=== PATIENT | female | born 1975 | race American Indian/Alaskan Native ===

== ENCOUNTER 2016-11-13 11:32 | Emergency (ER) | payer BC, OTHER ==
[2016-11-13] MEDS ORDERED: methylPREDNISolone Sodium Succinate 125 MG/2 ML SDV IM ONE (11:35)
[2016-11-13] MEDS ORDERED: diphenhydrAMINE 50 MG/ML SDV IM ONE (11:35)
--- NOTE | 2016-11-13 11:54 | EDM.PDOC ---
ED HPI GENERAL MEDICAL PROBLEM - General Chief Complaint: Allergic Reaction Stated Complaint: [id number] THROAT TIGHT HIVES Time Seen by Provider: 11/13/16 11:50 Source of Information: Reports: Patient History Limitations: Reports: No Limitations - History of Present Illness INITIAL COMMENTS - FREE TEXT/NARRATIVE: This 41 yo female patient reports to the ED with hives and tightness in her throat. The patient reports her symptoms started yesterday and have gotten worse today. The patient reports she took Benadryl (25 mg) just prior to coming to the ED. The patient reports she does not know of anything that she is allergic to at this time. The patient reports she did not eat or drink anything new over the past 24 hours. 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 ED EXAM GENERAL NO PERIP PULSE - Physical Exam Exam: See Below Exam Limited By: No Limitations General Appearance: Alert, WD/WN, Anxious, Obese Eye Exam: Bilateral Eye: EOMI, Normal Inspection, PERRL Ears: Normal External Exam, Normal Canal, Hearing Grossly Normal, Normal TMs Nose: Normal Inspection, Normal Mucosa, No Blood Throat/Mouth: Normal Inspection, Normal Lips, Normal Teeth, Normal Gums, Normal Oropharynx, Normal Voice, No Airway Compromise Head: Atraumatic, Normocephalic Neck: Normal Inspection, Supple, Non-Tender, Full Range of Motion Respiratory/Chest: No Respiratory Distress, Lungs Clear, Normal Breath Sounds, No Accessory Muscle Use, Chest Non-Tender Cardiovascular: Normal Peripheral Pulses, Regular Rate, Rhythm, No Edema, No Gallop, No JVD, No Murmur, No Rub GI/Abdominal: Normal Bowel Sounds, Soft, Non-Tender, No Organomegaly, No Distention, No Abnormal Bruit, No Mass (Female) Exam: Deferred Rectal (Female) Exam: Deferred Back Exam: Normal Inspection, Full Range of Motion, NT Extremities: Normal Inspection, Normal Range of Motion, Non-Tender, Normal Capillary Refill, No Pedal Edema Neurological: Alert, Oriented, CN II-XII Intact, Normal Cognition, Normal Gait, Normal Reflexes, No Motor/Sensory Deficits Psychiatric: Normal Affect, Normal Mood Skin Exam: Other (hives on the left neck, right neck and anterior chest.) Lymphatic: No Adenopathy Course - Orders/Labs/Meds Meds: Medications Discontinued Medications Generic Name Dose Route Start Last Admin Trade Name Seferinoq PRN Reason Stop Dose Admin Diphenhydramine HCl 50 mg 11/13/16 11:35 11/13/16 11:40 Benadryl IM 11/13/16 11:36 50 mg ONETIME ONE Administration Methylprednisolone Sodium Succinate 125 mg 11/13/16 11:35 11/13/16 11:40 Solu-Medrol IM 11/13/16 11:36 125 mg ONETIME ONE Administration Departure - Departure Time of Disposition: 12:40 Disposition: Home, Self-Care 01 Condition: Fair Clinical Impression: Allergic angioedema Qualifiers: Encounter type: initial encounter Qualified Code(s): T78.3XXA - Angioneurotic edema, initial encounter - Discharge Information Instructions: Angioedema, [id number] Forms: ED Department Discharge Care Plan Goals: The patient was advised of the examination results during the visit. The patient was given injections of Benadryl (50 mg) and SoluMedrol (125 mg) while in the ED. The patient was advised to continue to take Benadryl (25 mg) every 6 hours over the next 48 hours. The patient was given a script for Prednisone (20 mg) #10 to take 2 by mouth daily for 5 days. If the patient has any additional symptoms or concerns, the patient should follow-up with her primary care facility or return to the emergency department.
[2016-11-13 12:47] VITALS: BP 126/69
== END 2016-11-13 12:44 | disposition home or self-care (01) ==
LOC: DL.ED 11:32
DX: T78.3XXA Angioneurotic edema, initial encounter (principal); E66.9 Obesity, unspecified
CPT/HCPCS: 96372; 99284; J1200; J2930

== ENCOUNTER 2016-11-18 14:55 | Emergency (ER) | payer BC, OTHER ==
[2016-11-18 15:10] VITALS: BP 151/93
[2016-11-18] MEDS ORDERED: Sodium Chloride 0.9% 1,000 ML IV ONE (15:14)
--- NOTE | 2016-11-18 16:33 | EDM.PDOC ---
ED HPI GENERAL MEDICAL PROBLEM - General Chief Complaint: Allergic Reaction Stated Complaint: ALERGIC REACTION HARD TIME BREATHING Time Seen by Provider: 11/18/16 15:10 Source of Information: Reports: Patient History Limitations: Reports: No Limitations - History of Present Illness INITIAL COMMENTS - FREE TEXT/NARRATIVE: 41 yo [place] Female c/o hives since Saturday, Patient was seen in this ER and treated with benadryl and Prednisone. Patient also c/o of lip swelling. Patient states she took a benadryl and prednisone prior to coming in to ER. Onset Date: 11/12/16 Onset Time: 13:00 Duration: Day(s):, Recurring Location: Reports: Face, Generalized Quality: Reports: Same as Previous Episode Severity: Moderate Improves with: Reports: Medication - Related Data Allergies Allergy/AdvReac Type Severity Reaction Status Date / Time No Known Allergies Allergy Verified 11/13/16 11:43 Home Meds: Home Meds Albuterol [Proair HFA] 2 puff INH Q6H PRN 11/13/16 [History] Fluticasone/Salmeterol [Advair 250-50 Diskus] 1 puff INH BID 11/13/16 [History] Naproxen [Naprosyn] 500 mg PO BID 11/13/16 [History] sulfaSALAzine [sulfaSALAzine DR] 1,000 mg PO BID 11/13/16 [History] Past Medical History HEENT History: Reports: Impaired Vision Cardiovascular History: Reports: None Respiratory History: Reports: Asthma Gastrointestinal History: Reports: None Genitourinary History: Reports: None 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: Musculoskeletal History: Reports: RA Neurological History: Reports: None Psychiatric History: Reports: None Endocrine/Metabolic History: Reports: None Hematologic History: Reports: None Immunologic History: Reports: None Oncologic (Cancer) History: Reports: None Dermatologic History: Reports: None - Infectious Disease History Infectious Disease History: Reports: Shingles - Past Surgical History HEENT Surgical History: Reports: Eye Surgery, Tonsillectomy GI Surgical History: Reports: None Female Surgical History: Reports: Section, Tubal Ligation Endocrine Surgical History: Reports: None Musculoskeletal Surgical History: Reports: None Social & Family History - Family History Family Medical History: Noncontributory - Tobacco Use Smoking Status *Q: Never Smoker Second Hand Smoke Exposure: No - Caffeine Use Caffeine Use: Reports: Coffee, Energy Drinks, Soda, Tea - Alcohol Use Days Per Week of Alcohol Use: 1 Number of Drinks Per Day: 6 Total Drinks Per Week: 6 - Recreational Drug Use Recreational Drug Use: No ED ROS ALLERGIC REACTION - Review of Systems Review Of Systems: See Below Constitutional: Reports: No Symptoms HEENT: Reports: No Symptoms Respiratory: Reports: No Symptoms Cardiovascular: Reports: No Symptoms Endocrine: Reports: No Symptoms GI/Abdominal: Reports: No Symptoms : Reports: No Symptoms Musculoskeletal: Reports: No Symptoms Skin: Reports: Pruritis, Urticaria Neurological: Reports: No Symptoms Psychiatric: Reports: No Symptoms Hematologic/Lymphatic: Reports: No Symptoms Immunologic: Reports: No Symptoms ED EXAM GENERAL NO PERIP PULSE - Physical Exam Exam: See Below Exam Limited By: No Limitations General Appearance: Alert, No Apparent Distress, Obese Eye Exam: Bilateral Eye: EOMI, PERRL Ears: Normal External Exam Nose: Normal Inspection Throat/Mouth: Normal Inspection, Normal Oropharynx Head: Atraumatic Neck: Normal Inspection Respiratory/Chest: No Respiratory Distress Cardiovascular: Normal Peripheral Pulses GI/Abdominal: Normal Bowel Sounds Back Exam: Normal Inspection Extremities: Normal Inspection, Normal Range of Motion Neurological: Alert, Oriented, CN II-XII Intact, Normal Cognition Psychiatric: Normal Affect, Normal Mood Skin Exam: Warm, Dry, Other (generalized hives) Lymphatic: No Adenopathy Course - Vital Signs Last Recorded V/S: Last Vital Signs Temp 36.3 C 11/18/16 15:08 Pulse 90 11/18/16 15:08 Resp 22 H 11/18/16 15:08 BP 151/93 H 11/18/16 15:08 Pulse Ox 97 11/18/16 15:08 - Orders/Labs/Meds Orders: Active Orders 24 hr Category Date Time Status IMMUNOGLOBULIN E [REF] Stat Lab 11/18/16 15:27 Received Labs: Laboratory Tests 11/18/16 Range/Units 15:27 WBC 13.6 H (5.0-10.0) 10^3/uL RBC 4.84 (4.2-5.4) 10^6/uL Hgb 13.4 (12.0-16.0) g/dL Hct 41.3 (37.0-47.0) % MCV 85.3 (80-100) fL MCH 27.7 (27.0-34.0) pg MCHC 32.4 L (33.0-35.0) g/dL Plt Count 365 (150-450) 10^3/uL Neut % (Auto) 82.5 H (42.2-75.2) % Lymph % (Auto) 10.9 L (20.5-50.1) % [place] % (Auto) 5.8 (2-8) % Eos % (Auto) 0.7 L (1.0-3.0) % Baso % (Auto) 0.1 (0.0-1.0) % Meds: Medications Discontinued Medications Generic Name Dose Route Start Last Admin Trade Name Freq PRN Reason Stop Dose Admin Sodium Chloride 1,000 mls @ 999 mls/hr 11/18/16 15:14 11/18/16 15:22 Normal Saline IV 11/18/16 16:14 999 mls/hr .BOLUS ONE Administration Departure - Departure Time of Disposition: 16:33 Disposition: Home, Self-Care 01 Condition: Good Clinical Impression: Urticaria - Discharge Information Instructions: Allergies Forms: ED Department Discharge Additional Instructions: Increase intake of fluids ( Water / Juice) Complete your prescription of Prednisone F/U w/ PCP for Allergy Testing - My Orders Last 24 Hours: My Active Orders 11/18/16 15:27 IMMUNOGLOBULIN E [REF] Stat - Assessment/Plan Last 24 Hours: My Active Orders 11/18/16 15:27 IMMUNOGLOBULIN E [REF] Stat
== END 2016-11-18 16:44 | disposition home or self-care (01) ==
LOC: DL.ED 14:55
DX: L50.9 Urticaria, unspecified (principal); J45.909 Unspecified asthma, uncomplicated; Z98.51 Tubal ligation status; Z98.890 Other specified postprocedural states
CPT/HCPCS: 82785; 85025; 96360; 99283; J7030; 36415

== ENCOUNTER 2017-07-09 11:29 | Emergency (ER) | payer BC, OTHER ==
[2017-07-09] MEDS ORDERED: diphenhydrAMINE 50 MG/ML SDV IM ONE (11:36)
--- NOTE | 2017-07-09 12:06 | EDM.PDOC ---
ED HPI GENERAL MEDICAL PROBLEM - General Chief Complaint: Respiratory Problem Stated Complaint: [id number] THROAT CLOSING Time Seen by Provider: 07/09/17 11:50 Source of Information: Reports: Patient History Limitations: Reports: No Limitations - History of Present Illness INITIAL COMMENTS - FREE TEXT/NARRATIVE: This 42 yo female patient reports to the ED with pressure in her throat. The patient reports she feels like her throat is closing off. The patient expressed concern due to a family member having a heart problem and has had some increased anxiety due to the family history. The patient reports she has had these symptoms over the past 2 weeks, but her symptoms got much worse today. The patient reports she has been seen by an ENT about possible TMJ due to grinding her teeth at night. The patient also reports numerous ear infections right worse than left. Onset: Gradual Duration: Week(s):, Getting Worse (today) Location: Reports: Neck (right side of neck) Quality: Reports: Pressure Severity: Moderate Improves with: Reports: None Worsens with: Reports: None Context: Reports: Other Associated Symptoms: Reports: No Other Symptoms - Related Data Allergies Allergy/AdvReac Type Severity Reaction Status Date / Time Sulfa (Sulfonamide Allergy Rash Verified 07/09/17 12:30 Antibiotics) Home Meds: Home Meds Albuterol [Proair HFA] 2 puff INH Q6H PRN 11/13/16 [History] Fluticasone/Salmeterol [Advair 250-50 Diskus] 1 puff INH BID 11/13/16 [History] Naproxen [Naprosyn] 500 mg PO BID 11/13/16 [History] sulfaSALAzine [sulfaSALAzine DR] 1,000 mg PO BID 11/13/16 [History] Past Medical History HEENT History: Reports: Impaired Vision Cardiovascular History: Reports: None Respiratory History: Reports: Asthma Gastrointestinal History: Reports: None Genitourinary History: Reports: None 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: Musculoskeletal History: Reports: RA Neurological History: Reports: None Psychiatric History: Reports: None Endocrine/Metabolic History: Reports: None Hematologic History: Reports: None Immunologic History: Reports: None Oncologic (Cancer) History: Reports: None Dermatologic History: Reports: None - Infectious Disease History Infectious Disease History: Reports: Shingles - Past Surgical History HEENT Surgical History: Reports: Eye Surgery, Tonsillectomy GI Surgical History: Reports: None Female Surgical History: Reports: Section, Tubal Ligation Endocrine Surgical History: Reports: None Musculoskeletal Surgical History: Reports: None Social & Family History - Family History Family Medical History: Noncontributory - Tobacco Use Smoking Status *Q: Never Smoker Second Hand Smoke Exposure: No - Caffeine Use Caffeine Use: Reports: Coffee, Energy Drinks, Soda, Tea - Alcohol Use Days Per Week of Alcohol Use: 1 Number of Drinks Per Day: 6 Total Drinks Per Week: 6 - Recreational Drug Use Recreational Drug Use: No ED ROS GENERAL - Review of Systems Review Of Systems: ROS reveals no pertinent complaints other than HPI. ED EXAM, GENERAL - Physical Exam Exam: See Below Exam Limited By: No Limitations General Appearance: Alert, WD/WN, Mild Distress Eye Exam: Bilateral Eye: EOMI, Normal Inspection, PERRL Ear Exam: Right Ear: TM Red, TM Perforation, Left Ear: TM normal Nose: Normal Inspection, Normal Mucosa, No Blood Throat/Mouth: Normal Inspection, Normal Lips, Normal Gums, Normal Oropharynx, Normal Voice, No Airway Compromise, Other (dental decay) Head: Atraumatic, Normocephalic Neck: Lymphadenopathy (R) (tenderness) Respiratory/Chest: No Respiratory Distress, Lungs Clear, Normal Breath Sounds, No Accessory Muscle Use, Chest Non-Tender Cardiovascular: Normal Peripheral Pulses, Regular Rate, Rhythm, No Edema, No Gallop, No JVD, No Murmur, No Rub GI/Abdominal: Normal Bowel Sounds, Soft, Non-Tender, No Organomegaly, No Distention, No Abnormal Bruit, No Mass (Female) Exam: Deferred Rectal (Female) Exam: Deferred Back Exam: Normal Inspection, Full Range of Motion, NT Extremities: Normal Inspection, Normal Range of Motion, Non-Tender, Normal Capillary Refill, No Pedal Edema Neurological: Alert, Oriented, CN II-XII Intact, Normal Cognition, Normal Gait, Normal Reflexes, No Motor/Sensory Deficits Psychiatric: Normal Affect, Normal Mood Skin Exam: Warm, Dry, Intact, Normal Color, No Rash Course - Vital Signs Last Recorded V/S: Last Vital Signs Temp 36.0 C 07/09/17 12:25 Pulse 124 H 07/09/17 12:25 Resp 16 07/09/17 12:25 BP 181/96 H 07/09/17 12:25 Pulse Ox 97 07/09/17 12:25 - Orders/Labs/Meds Orders: Active Orders 24 hr Category Date Time Status EKG Documentation Completion [RC] URGENT Care 07/09/17 11:59 Active Labs: Laboratory Tests 07/09/17 07/09/17 07/09/17 Range/Units 11:48 11:48 11:48 WBC 11.9 H (5.0-10.0) 10^3/uL RBC 4.82 (4.2-5.4) 10^6/uL Hgb 13.2 (12.0-16.0) g/dL Hct 39.8 (37.0-47.0) % MCV 82.6 (80-100) fL MCH 27.4 (27.0-34.0) pg MCHC 33.2 (33.0-35.0) g/dL Plt Count 314 (150-450) 10^3/uL Neut % (Auto) 58.7 (42.2-75.2) % Lymph % (Auto) 31.1 (20.5-50.1) % [place] % (Auto) 9.4 H (2-8) % Eos % (Auto) 0.6 L (1.0-3.0) % Baso % (Auto) 0.2 (0.0-1.0) % Add Manual Diff Yes Neutrophils % (Manual) 53 (42-75) % Band Neutrophils % 6 % Lymphocytes % (Manual) 26 (20-50) % Monocytes % (Manual) 12 H (2-8) % Eosinophils % (Manual) 2 (1-3) % Basophils % (Manual) 1 Toxic Granulation 2+ moderate Platelet Estimate Adequate Sodium 134 L (135-145) mmol/L Potassium 3.6 (3.6-5.0) mmol/L Chloride 99 L (101-111) mmol/L Carbon Dioxide 24.0 (21.0-31.0) mmol/L Anion Gap 14.6 BUN 13 (7-18) mg/dL Creatinine 0.8 (0.6-1.3) mg/dL Est Cr Clr Drug Dosing TNP Estimated GFR (MDRD) > 60 BUN/Creatinine Ratio 16.25 Glucose 105 (74-105) mg/dL Calcium 8.8 (8.4-10.2) mg/dl Total Bilirubin 0.5 (0.2-1.0) mg/dL AST 24 (10-42) IU/L ALT 18 (10-60) IU/L Alkaline Phosphatase 78 (42-121) IU/L Troponin I < 0.02 (0.00-0.02) ng/ml Total Protein 7.0 (6.7-8.2) g/dl Albumin 3.5 (3.2-5.5) g/dl Globulin 3.5 Albumin/Globulin Ratio 1.00 Meds: Medications Discontinued Medications Generic Name Dose Route Start Last Admin Trade Name Kaleigh PRN Reason Stop Dose Admin Diphenhydramine HCl 50 mg 07/09/17 11:36 07/09/17 11:40 Benadryl IM 07/09/17 11:37 50 mg ONETIME ONE Administration Departure - Departure Time of Disposition: 12:39 Disposition: Home, Self-Care 01 Condition: Fair Clinical Impression: Right otitis media Qualifiers: Otitis media type: serous Chronicity: acute Recurrence: not specified as recurrent Qualified Code(s): H65.01 - Acute serous otitis media, right ear - Discharge Information Instructions: Otitis Media, Adult, [id number] Forms: ED Department Discharge Care Plan Goals: The patient was advised of the examination, EKG and lab results during the visit. The patient was given an injection of Benadryl while in the ED. The patient was discharged with a script for Augmentin (500/125) #20 to take 1 by mouth 2 times per day for 10 days. The patient should follow-up with her primary care facility for continued evaluation and further management. - My Orders Last 24 Hours: My Active Orders 07/09/17 11:59 EKG Documentation Completion [RC] URGENT - Assessment/Plan Last 24 Hours: My Active Orders 07/09/17 11:59 EKG Documentation Completion [RC] URGENT
[2017-07-09 12:16] LABS: CHLORIDE,CL 99 mmol/L (101-111); SODIUM,NA 134 mmol/L (135-145)
[2017-07-09 12:29] VITALS: BP 181/96
--- NOTE | 2017-07-10 06:26 | EKG ---
07/09/2017 - KATIANA GOLDBERG SEPTEMBER - PROCEDURE: Twelve-lead EKG. FINDINGS: This 12-lead EKG shows a sinus tachycardia with a ventricular rate of 103. Normal axis and intervals. No acute ST-segment or T-wave changes. [facility] /[id number]
== END 2017-07-09 12:57 | disposition home or self-care (01) ==
LOC: DL.ED 11:29
DX: H65.01 Acute serous otitis media, right ear (principal); Z79.899 Other long term (current) drug therapy
CPT/HCPCS: 36415; 80053; 84484; 85025; 93005; 96372; 99283; J1200